=== PATIENT | female | born 1955 | race Caucasian/White ===

== ENCOUNTER 2021-05-05 08:01 | Day surgery (SDC) | payer BC ==
[~2021-05-05 08:01] MED LIST: Lactated Ringers 1,000 ML IV SCH; Sodium Chloride 0.9% 10 ML Syringe FLUSH PRN
[2021-05-05] MEDS ORDERED: fentaNYL 100 MCG/2 ML SDV ONE (09:07)
[2021-05-05] MEDS ORDERED: Propofol 200 MG/20 ML SDV ONE ×2 (09:07→10:25)
[2021-05-05 11:00] VITALS: BP 140/68; PULSE 78
== END 2021-05-05 11:35 | disposition home or self-care (01) ==
LOC: VM.SDS 08:01
PROVIDERS: ATTEND Family Medicine
DX: Z12.11 Encounter for screening for malignant neoplasm of colon (principal); K63.89 Other specified diseases of intestine; I10 Essential (primary) hypertension; I25.10 Atherosclerotic heart disease of native coronary artery without angina pectoris; E66.9 Obesity, unspecified; F32.A Depression, unspecified; I25.2 Old myocardial infarction; F17.210 Nicotine dependence, cigarettes, uncomplicated; Z86.010 Personal history of colon polyps; Z90.49 Acquired absence of other specified parts of digestive tract; Z98.890 Other specified postprocedural states; Z88.5 Allergy status to narcotic agent; Z88.8 Allergy status to other drugs, medicaments and biological substances; Z79.899 Other long term (current) drug therapy
CPT/HCPCS: 00811; 36415; 85610; J2704; J3010; J7120

== ENCOUNTER 2023-09-23 01:20 | Emergency (ER) | payer BC ==
[2023-09-23 01:57] LABS: EOSINOPHILS PERCENT AUTO 0.3 % (0.0-4.0); HEMATOCRIT 43.2 % (33.0-47.0); HEMOGLOBIN 14.8 g/dL (12.0-16.0); IMMATURE GRAN ABSOLUTE AUTO 0.01 x10^3/uL (0.00-0.07); LYMPHOCYTES ABSOLUTE AUTO 2.1 x10^3/uL (1.0-4.8); LYMPHOCYTES PERCENT AUTO 32.3 % (25.0-50.0); MEAN CORPUSCULAR HEMOGLOBIN 32.2 pg (26.0-32.0); MEAN CORPUSCULAR HGB CONC 34.3 g/dL (32.0-36.0); MEAN CORPUSCULAR VOLUME 93.9 fL (78.0-93.0); MONOCYTES ABSOLUTE AUTO 0.6 x10^3/uL (0.0-0.8); MONOCYTES PERCENT AUTO 8.4 % (2.0-11.0); NEUTROPHILS ABSOLUTE AUTO 3.9 x10^3/uL (1.8-7.7); NEUTROPHILS PERCENT AUTO 58.8 % (50.0-80.0); PLATELET COUNT,PLT 341 x10^3/uL (130-400); WHITE BLOOD CELL COUNT,WBC 6.5 x10^3/uL (4.0-10.0)
[2023-09-23 02:05] LABS: INR 3.6 (0.9-1.1); PTT,PARTIAL THROMBOPLSTIN TIME 49.9 SEC (21.9-33.8)
[2023-09-23] MEDS: Oxymetazoline 0.05% Nasal Spray 30 ML Bottle NAS ONE (02:10)
[2023-09-23 08:04] VITALS: BP 113/66; PULSE 98
== END 2023-09-23 03:11 | disposition home or self-care (01) ==
LOC: VM.ED 01:20
DX: R04.0 Epistaxis (principal); I10 Essential (primary) hypertension; E78.00 Pure hypercholesterolemia, unspecified; I25.10 Atherosclerotic heart disease of native coronary artery without angina pectoris; I25.2 Old myocardial infarction; Z88.6 Allergy status to analgesic agent; Z88.8 Allergy status to other drugs, medicaments and biological substances; Z88.5 Allergy status to narcotic agent; Z79.01 Long term (current) use of anticoagulants; Z79.51 Long term (current) use of inhaled steroids; Z79.899 Other long term (current) drug therapy
CPT/HCPCS: 30903; 36415; 85025; 85610; 85730; 99283; A9270; 30901

== ENCOUNTER 2023-09-23 14:41 | Emergency (ER) | payer BC ==
[2023-09-23 15:33] LABS: BASOPHILS PERCENT AUTO 0.1 % (0.2-1.2); EOSINOPHILS PERCENT AUTO 0.3 % (0.0-4.0); HEMATOCRIT 43.7 % (33.0-47.0); HEMOGLOBIN 15.2 g/dL (12.0-16.0); IMMATURE GRAN ABSOLUTE AUTO 0.01 x10^3/uL (0.00-0.07); LYMPHOCYTES ABSOLUTE AUTO 1.9 x10^3/uL (1.0-4.8); LYMPHOCYTES PERCENT AUTO 24.6 % (25.0-50.0); MEAN CORPUSCULAR HEMOGLOBIN 32.3 pg (26.0-32.0); MEAN CORPUSCULAR HGB CONC 34.8 g/dL (32.0-36.0); MEAN CORPUSCULAR VOLUME 92.8 fL (78.0-93.0); MONOCYTES ABSOLUTE AUTO 0.7 x10^3/uL (0.0-0.8); MONOCYTES PERCENT AUTO 8.7 % (2.0-11.0); NEUTROPHILS ABSOLUTE AUTO 5.1 x10^3/uL (1.8-7.7); NEUTROPHILS PERCENT AUTO 66.2 % (50.0-80.0); PLATELET COUNT,PLT 339 x10^3/uL (130-400); RED BLOOD CELL COUNT 4.71 x10^6/uL (4.00-5.50); WHITE BLOOD CELL COUNT,WBC 7.7 x10^3/uL (4.0-10.0)
[2023-09-23] MEDS: Lactated Ringers 1,000 ML IV ONE (15:42)
[2023-09-23] MEDS: Tranexamic Acid 1,000 MG/10 ML Vial IV ONE (15:43)
[2023-09-23 15:46] LABS: PROTHROMBIN TIME 37.6 SEC (8.9-11.5); PTT,PARTIAL THROMBOPLSTIN TIME 53.2 SEC (21.9-33.8)
[2023-09-23] MEDS: Ondansetron 4 MG/2 ML SDV IVPUSH ONE (15:50)
[2023-09-23 15:53] VITALS: BP 147/77; PULSE 106
== END 2023-09-23 16:29 | disposition short-term general hospital (02) ==
LOC: VM.ED 14:41
DX: R04.0 Epistaxis (principal); I10 Essential (primary) hypertension; E78.00 Pure hypercholesterolemia, unspecified; I25.2 Old myocardial infarction; I25.10 Atherosclerotic heart disease of native coronary artery without angina pectoris; F17.200 Nicotine dependence, unspecified, uncomplicated; Z88.6 Allergy status to analgesic agent; Z88.8 Allergy status to other drugs, medicaments and biological substances; Z88.5 Allergy status to narcotic agent; Z79.899 Other long term (current) drug therapy; Z79.01 Long term (current) use of anticoagulants; Z79.51 Long term (current) use of inhaled steroids; Z90.49 Acquired absence of other specified parts of digestive tract; Z90.710 Acquired absence of both cervix and uterus
CPT/HCPCS: 30903; 85025; 85610; 85730; 99284; J2405; J7120; 30901; 99283; J3490